=== PATIENT | female | born 1950 | race Caucasian/White ===

== ENCOUNTER → 2017-12-28 08:58 | Outpatient (CLI) | payer OTHER, SELFPAY ==
--- NOTE | 2017-12-28 | DI.MG.S_ITS ---
BILATERAL DIGITAL SCREENING MAMMOGRAM 3D/2D WITH CAD: 12/28/2017 CLINICAL: Routine screening. Comparison is made to exams dated: 12/16/2016 mammogram, 11/19/2015 mammogram, and 11/10/2015 mammogram - Located [facility]. There are scattered fibroglandular elements in both breasts. Current study was also evaluated with a Computer Aided Detection (CAD) system. No significant masses, calcifications, or other findings are seen in either breast. There has been no significant interval change. IMPRESSION: NEGATIVE There is no mammographic evidence of malignancy. A 1 year screening mammogram is recommended. NOTE: For mammograms, a report in lay terms will be sent to the patient. Approximately 15% of breast malignancies will not be visualized mammographically. In the management of a palpable breast mass, a negative mammogram must not discourage biopsy of a clinically suspicious lesion. Electronically Signed By: Torie winter/aditi:12/28/2017 11:35:02 letter sent: Normal Exam ACR BI-RADS Category 1: Negative 3341F
== END ==
PROVIDERS: Family Provider Internal Medicine; PCP Internal Medicine; Visit Provider Internal Medicine
DX: Z12.31 Encounter for screening mammogram for malignant neoplasm of breast (principal)
CPT/HCPCS: 77063; 77067

== ENCOUNTER → 2018-03-17 08:11 | Outpatient (CLI) | payer OTHER, SELFPAY ==
[2018-03-17 08:52] LABS: Add Manual Diff / Slide Review NO; Basophils Percent Auto 0.6 % (0-2); Hematocrit 35.1 % (36-46); Hemoglobin 12.2 g/dL (12.0-16.0); Lymphocytes Percent Auto 20.4 % (25-40); Mean Corpuscular HGB Conc 34.9 % (30-36); Mean Corpuscular Hemoglobin 33.2 PG (26-34); Monocytes Percent Auto 6.4 % (3-14); Neutrophils Absolute Auto 3900 /uL (3000-5900); Neutrophils Percent Auto 71.6 % (50-75); Platelet Count 159 X10^3/uL (150-400); Red Blood Cell Count 3.69 X10^6/uL (4.0-5.2); White Blood Cell Count 5.4 X10^3/uL (4.5-11.0)
[2018-03-17 08:59] LABS: Alanine Aminotransferase 23 IU/L (9-52); Albumin 4.6 g/dL (3.5-5.0); Albumin Globulin Ratio 1.8 (1.0-2.8); Alkaline Phosphatase 38 U/L (38-126); Aspartate Aminotransferase 24 IU/L (14-36); BUN Creatinine Ratio 28.6 (6-22); Bilirubin Total 0.5 mg/dL (0.2-1.3); Blood Urea Nitrogen 20 mg/dL (7-17); Calcium 9.8 mg/dL (8.4-10.2); Carbon Dioxide 28 mmol/L (22-32); Chloride 102 mmol/L (98-107); Cholesterol 186 mg/dL (140-199); Estimated Glomerular Filt Rate > 60.0 mL/min (>60); Globulin 2.6 g/dL (1.7-4.1); Glucose 109 mg/dL (80-110); HDL Cholesterol 71 mg/dL (40-60); HEMOLYSIS < 15 (0-50); LDL Cholesterol Calculated 83 mg/dL (<100); Potassium 4.1 mmol/L (3.4-5.1); Sodium 140 mmol/L (137-145); Total Protein 7.2 g/dL (6.3-8.2); Triglycerides 158 mg/dL (35-150)
[2018-03-17 09:35] LABS: Thyroid Stimulating Hormone 1.12 uIU/mL (0.47-4.68)
== END ==
PROVIDERS: Family Provider Internal Medicine; PCP Internal Medicine; Visit Provider Internal Medicine
DX: E03.9 Hypothyroidism, unspecified (principal)
CPT/HCPCS: 36415; 80053; 80061; 84443; 85025

== ENCOUNTER 2018-07-27 07:59 | Day surgery (SDC) | payer OTHER, SELFPAY ==
--- NOTE | 2018-07-27 | PATH_ITS ---
[facility] Accession Number: [id number] . 01 Material submitted: . COLON POLYP AT 15CM . 02 Diagnosis: Colon Polyp At 15 CM: Tubular adenoma. I/07/30/2018 . 02 Electronically signed: . Kirill Aguilar MD, PhD, Pathologist NPI- [id number] . 01 Gross description: . COLON POLYP AT 15CM: Received in formalin is 1 fragment(s) of lawson, soft tissue measuring 0.8 x 0.5 x 0.3 cm submitted entirely in 1 cassette(s) /CKI /CKI . 02 Pathologist provided ICD-10: D12.6 . 02 CPT . 101278 Performed at: 01 [facility] [address] [id number] MD Sam Kauffman MD Phone: [phone] Performed at: 02 [facility] [address] [place], [place] [id number] MD Loyda Pierre MD Phone: [phone]
[2018-07-27 08:51] VITALS: BMI 20.5
[2018-07-27 09:01] VITALS: BP 114/65; PULSE 96; RESP 15; TEMP 36.8; O2SAT 100
[2018-07-27] MEDS: SODIUM CHLORIDE 0.9% 1,000 ML 200 ML IV (09:04)
[2018-07-27] MEDS: SCOPOLAMINE 1 PATCH TOP (09:43)
--- NOTE | 2018-07-27 09:48 | PM.HP.1 ---
History of Present Illness Date Patient Seen: 07/27/18 Time Patient Seen: 09:48 Chief complaint: colonoscopy [id number] Narrative: Patient is a woman here for screening colonoscopy. The last exam was 10 years ago. No family history of colon cancer or personal history of polyps. Patient History Medical History Hypothyroidism (Chronic ~1999) Osteopenia (Chronic) Osteoporosis (Chronic) Seasonal allergies (Chronic) Abnormal Pap smear of cervix (Resolved ~2002) Chicken pox (Resolved) Measles (Resolved) Family & Social History Family History: Reviewed 07/27/18 by Jean-Claude Paulson MD Tobacco & Substance use: Smoking Status Never smoker Meds Home Medications Medication Instructions Recorded Confirmed Type calcium carbonate-vitamin D3 1 tab PO TID #0 05/25/11 07/27/18 History [Calcium 500 With D] [id number] [Severe 1 tab PO DAILY PRN #0 05/25/11 07/27/18 History Allergy-Sinus Headache] multivitamin 1 tab PO DAILY #0 05/25/11 07/27/18 History alendronate 70 mg tablet 70 mg PO Q7D@0730 #12 tab 03/20/18 07/27/18 Rx levothyroxine 75 mcg tablet 75 mcg PO QAM #90 tab 06/28/18 07/27/18 Rx ferrous sulfate [iron] 325 mg PO BID 07/27/18 07/27/18 History Allergies Allergy/AdvReac Type Severity Reaction Status Date / Time fentanyl [FENTANYL] AdvReac Mild VOMITING Verified 07/27/18 08:47 Review of Systems Review of Systems All systems reviewed & are unremarkable except as noted in HPI and below Endocrine Comments: Hypothyroid on medication Exam Vital Signs (past 8 hours): - 07/27/18 09:01 Temperature 98.2 F Pulse Rate 96 H Respiratory Rate 15 Blood Pressure 114/65 Pulse Oximetry 100 Oxygen Delivery Method Room Air Narrative Exam Narrative: Operative no apparent distress. Lungs are clear no rales or rhonchi heart regular rate and rhythm without murmur gallop. Abdomen is scaphoid soft nontender without mass. Patient is alert oriented x3. Assessment & Plan Plan: Assessment/Plan Narrative: Patient for screening colonoscopy. I have discussed the procedure and the rationale with the patient including risks of bleeding, perforation which would necessitate a major operation, failure to find remove all lesions and the potential to tattoo. They appeared to understand and wished to proceed.
--- NOTE | 2018-07-27 09:50 | PM.PREOP ---
Pre-operative Note Interval Note History & Physical reviewed/Exam performed by Physician: Yes Changes to H&P: No ASA Class (for procedural sedation): I
[2018-07-27] MEDS: ONDANSETRON 4 MG/2 ML INJ IV (09:53)
[2018-07-27] MEDS: MIDAZOLAM 5 MG/5 ML VIAL IV (09:59)
[2018-07-27] MEDS: fentaNYL 250 MCG/5 ML INJ IV (10:00)
--- NOTE | 2018-07-27 10:39 | PM.OP.ENDO ---
Operative Date/Time/Diagnoses Date of procedure: 07/27/18 Time of procedure: 10:19 Pre-op diagnosis: Screening exam. Last colonoscopy 10 years ago. Post-op diagnosis: same (Polyp at 15 cm which was snared. Diverticulosis occasional) Procedure & Clinicians Study performed: Colonoscopy with hot snare polypectomy Same procedure as scheduled: Yes Indications: Screening Surgeon: Jean-Claude Paulson Procedure Notes SCOAP/Timeout: Performed Procedure in detail: The patient was placed in the left lateral decubitus position and underwent IV sedation directed by the surgeon consisting of fentanyl and Versed. Digital exam was unremarkable. The scope was inserted and advanced through the rectum into the sigmoid, descending, transverse, and ascending colon. Diverticulosis was noted in the sigmoid colon. The cecum was reached identified by the ileocecal valve and the appendiceal opening. The scope was gradually brought out. One Polyp was found at 15 cm from the anal verge. This polyp was snared and completely removed. The scope ultimately was retroflexed in the rectum. The appearance was normal. The scope was removed and the patient tolerated the procedure well Scope withdrawal time: 12 min Sedation minutes: 28 Findings: diverticulosis and polyp (15 cm) Specimen(s): other (Polyp) Complications: none Recommendations: Colonscopy in 5 years Follow up: as needed Disposition: Acute Care
[2018-07-27 11:00] VITALS: BP 99/58; PULSE 73; RESP 16; TEMP 36.6; O2SAT 95
[2018-07-27 13:32] VITALS: BP 113/72; PULSE 90; TEMP 36.7; O2SAT 100
--- NOTE | 2018-07-27 13:33 | SUR.PHASEII ---
1025 Pt arrived from Endo, drowsy. Denied pain, abd soft. Declined po intake. Call light within reach.
== END 2018-07-27 11:17 | disposition home or self-care (01) ==
PROVIDERS: Family Provider Internal Medicine; PCP Internal Medicine; Visit Provider Specialist
PROC: 0DJD8ZZ Inspection of Lower Intestinal Tract, Via Natural or Artificial Opening Endoscopic (ICD-10-PCS; CPT 45378; principal; 2018-07-27 09:45)
DX: Z12.11 Encounter for screening for malignant neoplasm of colon (principal); K57.30 Diverticulosis of large intestine without perforation or abscess without bleeding; E03.9 Hypothyroidism, unspecified; D12.6 Benign neoplasm of colon, unspecified
CPT/HCPCS: 45385; 99152; 99153; J2250; J2405; J3010

== ENCOUNTER → 2018-12-29 09:54 | Outpatient (CLI) | payer OTHER, SELFPAY ==
--- NOTE | 2018-12-29 09:57 | DI.MG.S_ITS ---
BILATERAL DIGITAL SCREENING MAMMOGRAM 3D/2D WITH CAD: 12/29/2018 CLINICAL: Routine screening. Comparison is made to exams dated: 12/28/2017 mammogram, 12/16/2016 mammogram, and 11/10/2015 mammogram - [facility]. The tissue of both breasts is heterogeneously dense. This may lower the sensitivity of mammography. Current study was also evaluated with a Computer Aided Detection (CAD) system. No significant masses, calcifications, or other findings are seen in either breast. There has been no significant interval change. IMPRESSION: NEGATIVE There is no mammographic evidence of malignancy. A 1 year screening mammogram is recommended. This exam was interpreted at Station ID: [id number]. NOTE: For mammograms, a report in lay terms will be sent to the patient. Approximately 15% of breast malignancies will not be visualized mammographically. In the management of a palpable breast mass, a negative mammogram must not discourage biopsy of a clinically suspicious lesion. Electronically Signed By: Sam adhikari/aditi:12/31/2018 11:02:10 letter sent: Normal Exam ACR BI-RADS Category 1: Negative 3341F
== END ==
PROVIDERS: PCP Internal Medicine; Visit Provider Internal Medicine
DX: Z12.31 Encounter for screening mammogram for malignant neoplasm of breast (principal)
CPT/HCPCS: 77063; 77067

== ENCOUNTER → 2019-04-27 09:20 | Outpatient (CLI) | payer OTHER, SELFPAY ==
[2019-04-27 10:09] LABS: Add Manual Diff / Slide Review NO; Basophils Absolute Auto 100 /uL (0-100); Eosinophils Absolute Auto 100 /uL (0-450); Eosinophils Percent Auto 1.6 % (2-4); Hemoglobin 12.8 g/dL (12.0-16.0); Lymphocytes Absolute Auto 1100 /uL (1100-4500); Lymphocytes Percent Auto 21.1 % (25-40); Mean Corpuscular HGB Conc 34.5 % (30-36); Mean Corpuscular Hemoglobin 33.6 PG (26-34); Mean Corpuscular Volume 97.4 fL (80-100); Monocytes Absolute Auto 400 /uL (0-900); Monocytes Percent Auto 7.7 % (3-14); Neutrophils Absolute Auto 3600 /uL (1500-7000); Neutrophils Percent Auto 68.6 % (50-75); Platelet Count 158 X10^3/uL (150-400); Red Cell Distribution Width 13.1 % (11.6-14.8); White Blood Cell Count 5.2 X10^3/uL (4.5-11.0)
[2019-04-27 10:19] LABS: Alanine Aminotransferase 19 IU/L (9-52); Albumin 4.8 g/dL (3.5-5.0); Albumin Globulin Ratio 1.7 (1.0-2.8); Alkaline Phosphatase 49 U/L (38-126); Aspartate Aminotransferase 28 IU/L (14-36); BUN Creatinine Ratio 28.6 (6-22); Bilirubin Total 0.5 mg/dL (0.2-1.3); Blood Urea Nitrogen 20 mg/dL (7-17); Calcium 10.1 mg/dL (8.4-10.2); Carbon Dioxide 28 mmol/L (22-32); Chloride 102 mmol/L (98-107); Cholesterol 207 mg/dL (140-199); Estimated Glomerular Filt Rate > 60.0 mL/min (>60); Globulin 2.8 g/dL (1.7-4.1); Glucose 97 mg/dL (80-110); HDL Cholesterol 72 mg/dL (40-60); HEMOLYSIS < 15 (0-50); LDL Cholesterol Calculated 102 mg/dL (<100); Potassium 4.5 mmol/L (3.4-5.1); Sodium 140 mmol/L (137-145); Total Protein 7.6 g/dL (6.3-8.2); Triglycerides 165 mg/dL (35-150)
[2019-04-27 10:49] LABS: TSH w/ Reflex to FT4 1.44 uIU/mL (0.47-4.68)
[2019-04-29 17:06] LABS: Hep C Virus Ab w/Reflex Quant NEGATIVE s/c (NEGATIVE)
== END ==
PROVIDERS: PCP Internal Medicine; Visit Provider Internal Medicine
DX: Z13.0 Encounter for screening for diseases of the blood and blood-forming organs and certain disorders involving the immune mechanism (principal); Z79.899 Other long term (current) drug therapy; Z11.59 Encounter for screening for other viral diseases; I10 Essential (primary) hypertension; E03.9 Hypothyroidism, unspecified; Z13.220 Encounter for screening for lipoid disorders
CPT/HCPCS: 36415; 80053; 80061; 84443; 85025; 86803

== ENCOUNTER → 2019-04-30 13:18 | Outpatient (CLI) | payer OTHER, SELFPAY | PROVIDERS: PCP Internal Medicine; Visit Provider Internal Medicine | DX: M81.0 Age-related osteoporosis without current pathological fracture (principal); Z78.0 Asymptomatic menopausal state; E07.9 Disorder of thyroid, unspecified; Z82.62 Family history of osteoporosis; Z79.83 Long term (current) use of bisphosphonates | CPT/HCPCS: 77080 ==

== ENCOUNTER → 2020-01-28 10:05 | Outpatient (CLI) | payer OTHER, SELFPAY ==
--- NOTE | 2020-01-28 | DI.MG.S_ITS ---
BILATERAL DIGITAL SCREENING MAMMOGRAM 3D/2D WITH CAD: 01/28/2020 Comparison is made to exams dated: 12/29/2018 mammogram, 12/28/2017 mammogram, and 12/16/2016 mammogram - [facility]. The tissue of both breasts is heterogeneously dense. This may lower the sensitivity of mammography. Current study was also evaluated with a Computer Aided Detection (CAD) system. There are benign vascular calcifications in the left breast. No significant masses, calcifications, or other findings are seen in either breast. There has been no significant interval change. IMPRESSION: There is no mammographic evidence of malignancy. A 1 year screening mammogram is recommended. This exam was interpreted at Station ID: [id number]. NOTE: For mammograms, a report in lay terms will be sent to the patient. Approximately 15% of breast malignancies will not be visualized mammographically. In the management of a palpable breast mass, a negative mammogram must not discourage biopsy of a clinically suspicious lesion. Electronically Signed By: Coty zacarias/aditi:01/28/2020 12:05:34 letter sent: Normal Exam ACR BI-RADS Category 2: Benign Finding(s) 3342F
== END ==
PROVIDERS: PCP Internal Medicine; Referring Provider Internal Medicine; Visit Provider Internal Medicine
DX: Z12.31 Encounter for screening mammogram for malignant neoplasm of breast (principal)
CPT/HCPCS: 77063; 77067

== ENCOUNTER → 2020-09-10 07:31 | Outpatient (CLI) | payer MEDICARE, SELFPAY ==
[2020-09-10] MEDS: COVID-19 VACC, Ad26(JANSSEN)/PF 0.5 ML IM (07:35)
== END ==
PROVIDERS: PCP Internal Medicine; Visit Provider Internal Medicine
DX: Z23 Encounter for immunization (principal)
CPT/HCPCS: 0031A; 91303

== ENCOUNTER → 2021-03-06 09:17 | Outpatient (CLI) | payer MEDICARE, SELFPAY ==
--- NOTE | 2021-03-06 09:21 | DI.MG.S_ITS ---
BILATERAL DIGITAL SCREENING MAMMOGRAM 3D/2D WITH CAD: 03/06/2021 CLINICAL: Routine screening. Comparison is made to exams dated: 01/28/2020 mammogram, 12/29/2018 mammogram, and 12/28/2017 mammogram - [facility]. The tissue of both breasts is heterogeneously dense. This may lower the sensitivity of mammography. Current study was also evaluated with a Computer Aided Detection (CAD) system. No significant masses, calcifications, or other findings are seen in either breast. There has been no significant interval change. IMPRESSION: NEGATIVE There is no mammographic evidence of malignancy. A 1 year screening mammogram is recommended. This exam was interpreted at Station ID: [id number]. NOTE: For mammograms, a report in lay terms will be sent to the patient. Approximately 15% of breast malignancies will not be visualized mammographically. In the management of a palpable breast mass, a negative mammogram must not discourage biopsy of a clinically suspicious lesion. Electronically Signed By: Elian hernandez/aditi:03/09/2021 08:12:15 letter sent: Normal Exam ACR BI-RADS Category 1: Negative 3341F
== END ==
PROVIDERS: PCP Internal Medicine; Referring Provider Internal Medicine; Visit Provider Internal Medicine
DX: Z12.31 Encounter for screening mammogram for malignant neoplasm of breast (principal)
CPT/HCPCS: 77063; 77067

== ENCOUNTER → 2021-05-07 10:31 | Outpatient (CLI) | payer MEDICARE, SELFPAY ==
[2021-05-07] MEDS: COVID-19 VACC #3, MRNA(MOD) 50 MCG/0.25 ML VIAL IM (10:36)
== END ==
PROVIDERS: PCP Internal Medicine; Visit Provider Internal Medicine
DX: Z23 Encounter for immunization (principal)
CPT/HCPCS: 0013A; 91301

== ENCOUNTER → 2021-09-22 12:06 | Outpatient (CLI) | payer MEDICARE, SELFPAY | PROVIDERS: PCP Internal Medicine; Referring Provider Internal Medicine; Visit Provider Internal Medicine | DX: M81.0 Age-related osteoporosis without current pathological fracture (principal); Z13.820 Encounter for screening for osteoporosis; Z78.0 Asymptomatic menopausal state | CPT/HCPCS: 77080 ==

== ENCOUNTER → 2022-03-22 10:57 | Outpatient (CLI) | payer MEDICARE, SELFPAY ==
--- NOTE | 2022-03-22 | DI.MG.S_ITS ---
BILATERAL DIGITAL SCREENING MAMMOGRAM 3D/2D WITH CAD: 03/22/2022 CLINICAL: Routine screening. Comparison is made to exams dated: 03/06/2021 mammogram, 01/28/2020 mammogram, 12/29/2018 mammogram, 09/17/2014 mammogram, and 11/10/2015 mammogram - [facility]. Both breasts are heterogeneously dense, which may obscure small masses (category c / 51-75% glandular tissue). Current study was also evaluated with a Computer Aided Detection (CAD) system. No significant masses, calcifications, or other findings are seen in either breast. There has been no significant interval change. IMPRESSION: NEGATIVE There is no mammographic evidence of malignancy. A 1 year screening mammogram is recommended. Based on the Tyrer Cuzick model (a risk assessment model) the patient's lifetime risk is 6.4% and her 10 year risk is 4.4%. According to the ACR, ACS, and NCCN guidelines, an annual breast MRI exam along with mammogram is recommended if the patient's lifetime risk is 20% or greater. This exam was interpreted at Station ID: [id number]. NOTE: For mammograms, a report in lay terms will be sent to the patient. Approximately 15% of breast malignancies will not be visualized mammographically. In the management of a palpable breast mass, a negative mammogram must not discourage biopsy of a clinically suspicious lesion. Electronically Signed By: Kostas galvin/aditi:03/22/2022 18:00:01 letter sent: Normal Exam ACR BI-RADS Category 1: Negative 3341F
== END ==
PROVIDERS: PCP Internal Medicine; Referring Provider Internal Medicine; Visit Provider Internal Medicine
DX: Z12.31 Encounter for screening mammogram for malignant neoplasm of breast (principal)
CPT/HCPCS: 77063; 77067

== ENCOUNTER → 2023-03-23 14:50 | Outpatient (CLI) | payer MEDICARE, SELFPAY ==
--- NOTE | 2023-03-23 | DI.MG.S_ITS ---
BILATERAL DIGITAL SCREENING MAMMOGRAM 3D/2D WITH CAD: 03/23/2023 CLINICAL: Routine screening. Comparison is made to exams dated: 03/22/2022 mammogram, 03/06/2021 mammogram, and 01/28/2020 mammogram - [facility]. Both breasts are heterogeneously dense, which may obscure small masses (category c / 51-75% glandular tissue). Current study was also evaluated with a Computer Aided Detection (CAD) system. No significant masses, calcifications, or other findings are seen in either breast. There has been no significant interval change. IMPRESSION: NEGATIVE There is no mammographic evidence of malignancy. A 1 year screening mammogram is recommended. Based on the Tyrer Cuzick model (a risk assessment model) the patient's lifetime risk is 6.1% and her 10 year risk is 4.5%. According to the ACR, ACS, and NCCN guidelines, an annual breast MRI exam along with mammogram is recommended if the patient's lifetime risk is 20% or greater. This exam was interpreted at Station ID: [id number]. NOTE: For mammograms, a report in lay terms will be sent to the patient. Approximately 15% of breast malignancies will not be visualized mammographically. In the management of a palpable breast mass, a negative mammogram must not discourage biopsy of a clinically suspicious lesion. Electronically Signed By: Fartun machado/aditi:03/23/2023 17:22:56 letter sent: Normal Exam ACR BI-RADS Category 1: Negative 3341F
== END ==
PROVIDERS: PCP Internal Medicine; Referring Provider Internal Medicine; Visit Provider Internal Medicine
DX: Z12.31 Encounter for screening mammogram for malignant neoplasm of breast (principal)
CPT/HCPCS: 77063; 77067

== ENCOUNTER 2023-12-21 09:54 | Day surgery (SDC) | payer OTHER, SELFPAY ==
[2023-12-21] MEDS: ONDANSETRON 4 MG/2 ML INJ IV (10:19)
[2023-12-21 10:20] VITALS: BP 134/76; PULSE 73; RESP 16; TEMP 36.9; O2SAT 100; BMI 20.1
[2023-12-21] MEDS: LACTATED RINGERS 1,000 ML 42 ML IV (10:33)
--- NOTE | 2023-12-21 10:59 | P.HP_ITS ---
History of Present Illness History of Present Illness Date Patient Seen: 12/21/23 Time Patient Seen: 10:59 Chief complaint: SDC Narrative: Elena is a 73-year-old woman who has a history of a colon polyp in 2019. She eats a high-fiber diet. No family history of colon cancer. FOR[facility]LY [facility], [facility] Medical History (Updated 12/21/23 @ 11:00 by Manav Morales MD) Osteoporosis Osteopenia Abnormal Pap smear of cervix (~2002) Seasonal allergies Measles Chicken pox Hypothyroidism (~1999) Family History Brother Age: 67 Hyperlipidemia Father Rheumatoid arthritis Hypertension Congestive heart failure Mother Age: 97 Diabetes mellitus Hypertension Social History household members: children Smoking Status: Never smoker alcohol intake: never Meds Home Medications and Allergies Home Medications Medication Instructions Recorded Confirmed Type alendronate 70 mg tablet (Fosamax) 70 mg PO Q7D@0730 #12 tabs 03/20/18 07/27/18 Rx levothyroxine 75 mcg tablet 75 mcg PO QAM #90 tabs 06/28/18 12/21/23 Rx (Synthroid) Allergies Allergy/AdvReac Type Severity Reaction Status Date / Time fentanyl [FENTANYL] AdvReac Mild VOMITING Verified 12/21/23 10:16 Exam Vital Signs (past 8 hours): - 12/21/23 10:20 Temperature 98.4 F Pulse Rate 73 Respiratory Rate 16 Blood Pressure 134/76 Pulse Oximetry 100 Oxygen Delivery Method Room Air Oxygen Delivery Method Room Air Const General: healthy appearing Resp Effort & Inspection: normal respiratory effort Assessment & Plan Assessment and plan (1) History of colon polyps: Status: Acute Plan We reviewed the risks and benefits of colonoscopy for a history of polyps and she would like to proceed.
[2023-12-21 11:56] VITALS: BP 138/75; PULSE 72; RESP 10; TEMP 36.3; O2SAT 96
--- NOTE | 2023-12-21 11:58 | PM.OP.COLON ---
Operative Date/Time/Diagnoses Date of procedure: 12/21/23 Time of procedure: 11:58 Pre-op diagnosis: History of polyps Post-op diagnosis: same Procedure & Clinicians Study performed: Colonoscopy Same procedure as scheduled: Yes Surgeon: Manav Morales Procedure Notes Procedure in detail: Surgeon: Manav Morales MD Anesthesia: Rowena Carlos CRNA Procedure: The patient was brought to the endoscopy suite, placed in left lateral decubitus position. The patient was connected to monitoring devices. A time-out was performed. Sedation was administered. Once the patient was adequately sedated, a digital rectal exam was performed and was normal. The scope was then inserted and advanced to the cecum where the appendiceal orifice was identified and photographed. The scope was then slowly withdrawn over greater than 6 minutes. The mucosa was thoroughly inspected. Rare diverticula were noted in the sigmoid colon. The scope was retroflexed in the rectum. No other abnormality was seen. The scope was straightened and removed. The patient was awakened and brought to recovery. Scope withdrawal time: 7 minutes Sedation time: 16 minutes EBL: 0 Findings: Normal colon Post-procedure Disposition: PACU
[2023-12-21 12:01] VITALS: BP 142/76; PULSE 68; RESP 10; O2SAT 98
[2023-12-21 12:06] VITALS: BP 142/86; PULSE 68; RESP 10; O2SAT 99
[2023-12-21 12:12] VITALS: BP 142/86; PULSE 68; RESP 12; TEMP 36.3; O2SAT 100
[2023-12-21 12:20] VITALS: BP 146/78; PULSE 71; RESP 20; O2SAT 99
== END 2023-12-21 12:34 | disposition home or self-care (01) ==
PROVIDERS: PCP Internal Medicine; Referring Provider Surgery; Visit Provider Surgery
PROC: 0DJD8ZZ Inspection of Lower Intestinal Tract, Via Natural or Artificial Opening Endoscopic (ICD-10-PCS; CPT 45378; principal; 2023-12-21 11:00)
DX: Z12.11 Encounter for screening for malignant neoplasm of colon (principal); Z86.010 Personal history of colon polyps; K57.30 Diverticulosis of large intestine without perforation or abscess without bleeding
CPT/HCPCS: G0105; J2405; J2704

== ENCOUNTER → 2024-03-25 10:48 | Outpatient (CLI) | payer OTHER, SELFPAY ==
--- NOTE | 2024-03-25 10:49 | DI.MG.S_ITS ---
BILATERAL DIGITAL SCREENING MAMMOGRAM 3D/2D WITH CAD: 03/25/2024 CLINICAL: Routine screening. Comparison is made to exams dated: 03/23/2023 mammogram, 03/22/2022 mammogram, 03/06/2021 mammogram, 01/28/2020 mammogram, 12/29/2018 mammogram, and 12/28/2017 mammogram - [facility]. The breasts are heterogeneously dense, which may obscure small masses (category c / 51-75% glandular tissue). Current study was also evaluated with a Computer Aided Detection (CAD) system. No significant masses, calcifications, or other findings are seen in either breast. There has been no significant interval change. IMPRESSION: NEGATIVE There is no mammographic evidence of malignancy. A 1 year screening mammogram is recommended. Based on the Tyrer Cuzick model (a risk assessment model) the patient's lifetime risk is 5.7% and her 10 year risk is 4.7%. According to the ACR, ACS, and NCCN guidelines, an annual breast MRI exam along with mammogram is recommended if the patient's lifetime risk is 20% or greater. This exam was interpreted at Station ID: [id number]. NOTE: For mammograms, a report in lay terms will be sent to the patient. Approximately 15% of breast malignancies will not be visualized mammographically. In the management of a palpable breast mass, a negative mammogram must not discourage biopsy of a clinically suspicious lesion. Electronically Signed By: Fartun Carrasco M.D., Ph.D. shanta/aditi:03/26/2024 09:31:10 letter sent: Normal Exam ACR BI-RADS Category 1: Negative
== END ==
LOC: MAMMO 10:49
PROVIDERS: PCP Internal Medicine; Referring Provider Internal Medicine; Visit Provider Internal Medicine
DX: Z12.31 Encounter for screening mammogram for malignant neoplasm of breast (principal); R92.333 Mammographic heterogeneous density, bilateral breasts
CPT/HCPCS: 77063; 77067

== ENCOUNTER → 2024-07-24 10:26 | Outpatient (CLI) | payer OTHER, SELFPAY ==
--- NOTE | 2024-07-24 10:28 | DI.RAD.S_ITS ---
PROCEDURE: XR DEXA AXIAL SKELETON INDICATIONS: Osteoporosis Screening COMPARISON: [facility], , XR DEXA AXIAL SKELETON, 09/22/2021, 12:45. [facility], CR, XR DEXA AXIAL SKELETON, 04/30/2019, 13:35. FINDINGS: Lumbar Spine: Bone mineral density 1.045 g/cm2, T score 0.0. Since the most recent prior study, there has been no statistically significant change in bone mineral density. Left Femoral Neck: Bone mineral density 0.539 g/cm2, T score -2.8. Left Hip: Bone mineral density 0.659 g/cm2, T score -2.3. Prior DEXA was performed using dissimilar scan type or analysis method. Fracture Risk Calculation (when applicable): FRAX score not reported due to T-score less than -2.5. (T score greater or equal to -1.0 to: NORMAL) (T score from -1.1 to -2.4: OSTEOPENIA) (T score less than or equal to -2.5: OSTEOPOROSIS) IMPRESSION: By WHO criteria, patient has osteoporosis. Follow-up guidelines as follows: Osteoporosis: Consider a repeat DEXA and Vertebral Fracture Assessment (VFA) exam in 2 years or sooner if medically necessary, to reassess this patient's status. Osteopenia: Consider a repeat DEXA in 2-3 years to reassess this patient's status, or if there is a new clinical indication. Normal: Consider a repeat DEXA in 5 years or sooner, or if there is a new clinical indication. All treatment decisions require clinical judgment and consideration of individual patient factors, including patient preferences, comorbidities, previous drug use, risk factors not captured in the FRAX model (e.g., frailty, falls, vitamin D deficiency, increased bone turnover, interval significant decline in bone density ) and possible under- or over-estimation of fracture risk by FRAX. In addition, the NOF Guide recommends that FDA-approved medical therapies be considered in postmenopausal women and men age >= 50 years with a: * Hip or vertebral (clinical or morphometric) fracture * T-score of <=-2.5 at the spine or hip * Ten-year fracture probability by FRAX of >= 3% for hip fracture or >=20% for major osteoporotic fracture. Approved by: Elian Bedoya M.D. on 07/24/2024 at 22:25
== END ==
PROVIDERS: PCP Internal Medicine; Referring Provider Internal Medicine; Visit Provider Internal Medicine
DX: M81.0 Age-related osteoporosis without current pathological fracture (principal); Z78.0 Asymptomatic menopausal state
CPT/HCPCS: 77080

== ENCOUNTER → 2025-03-26 11:27 | Outpatient (CLI) | payer OTHER, SELFPAY ==
--- NOTE | 2025-03-26 11:28 | DI.MG.S_ITS ---
MM screening mammo BI: 03/26/2025. BI-RADS: 1 CLINICAL: 74-year old female for bilateral screening mammogram. Tyrer-Cuzick lifetime risk of 5.5%. No personal or first-degree family history of breast cancer. PRIOR EXAMS 03/25/2024, 03/23/2023, 03/22/2022, 03/06/2021. MAMMOGRAPHY TECHNIQUE: 2D and 3D (tomosynthesis) digital mammographic views obtained, with additional images as needed for full coverage. Current study was also evaluated with a Computer Aided Detection (CAD) system. DENSITY C. The breasts are heterogeneously dense, which may obscure small masses. MAMMOGRAPHY FINDINGS Bilateral: No suspicious mass, asymmetry, microcalcification, or other abnormality seen. IMPRESSION: * No evidence of malignancy. RECOMMENDATIONS Bilateral * Annual screening mammography. OVERALL ASSESSMENT CATEGORY BI-RADS-1: Negative. The [employer] recommends annual screening mammography beginning at age 40 for women with average risk of breast cancer. ELECTRONICALLY SIGNED: Mahi Ramey M.D. on 03/26/2025 at 01:51:12 PM PT Interpreting Station ID: [id number]
== END ==
LOC: MAMMO 11:28
PROVIDERS: PCP Registered Nurse; Referring Provider Registered Nurse; Visit Provider Registered Nurse
DX: Z12.31 Encounter for screening mammogram for malignant neoplasm of breast (principal); R92.333 Mammographic heterogeneous density, bilateral breasts
CPT/HCPCS: 77063; 77067